=== PATIENT | female | born 1985 | race Two or more races ===

== ENCOUNTER 2024-04-17 02:42 | Emergency (ER) | payer OTHER ==
[2024-04-17 02:52] VITALS: BP 142/98; PULSE 67; RESP 18; TEMP 97.7; BMI 32.8
[2024-04-17] MEDS ORDERED: KETOROLAC TROMETHAMINE 60 MG/2 ML VIAL ONE (03:14)
[2024-04-17] MEDS ORDERED: hydrOXYzine PAMOATE 25 MG CAPSULE (FP) PO ONE (03:14)
[2024-04-17] MEDS: KETOROLAC TROMETHAMINE 60 MG/2 ML VIAL IM ONE (03:17)
[2024-04-17] MEDS: hydrOXYzine PAMOATE 25 MG CAPSULE (FP) PO ONE (03:17)
== END 2024-04-17 03:30 | disposition home or self-care (01) ==
LOC: FER 02:42
PROC: 3E0133Z Introduction of Anti-inflammatory into Subcutaneous Tissue, Percutaneous Approach (ICD-10-PCS; principal; 2024-04-17)
DX: M54.12 Radiculopathy, cervical region (principal); M25.512 Pain in left shoulder
CPT/HCPCS: 99284-25